=== PATIENT | female | born 1995 | race African-American/Black ===

== ENCOUNTER 2020-05-28 15:53 | Emergency (ER) | payer BC, SELFPAY ==
[2020-05-28 15:55] VITALS: BP 107/72; PULSE 98; RESP 16; TEMP 36.3; O2SAT 100
[2020-05-28 17:40] VITALS: PULSE 80; RESP 20; O2SAT 100
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
== END 2020-05-28 17:42 | disposition home or self-care (01) ==
PROVIDERS: Emergency Provider Emergency Medicine; PCP Internal Medicine
DX: S61.411A Laceration without foreign body of right hand, initial encounter (principal); W27.2XXA Contact with scissors, initial encounter
CPT/HCPCS: 99282

== ENCOUNTER 2020-05-30 16:01 | Emergency (ER) | payer BC, SELFPAY ==
--- NOTE | ~2020-05-30 | XR_ITS ---
XR hand RT min 3V 05/30/2020 16:49 INDICATION: Right hand pain PROCEDURE: 3 views right hand COMPARISON: No prior studies for comparison. FINDINGS: Fracture, dislocation or subluxation is not identified. The soft tissues appear within norm al limits. No foreign bodies are identified. IMPRESSION: 1: NO ACUTE BONE OR JOINT ABNORMALITY IDENTIFIED. Reviewed, dictated and finalized at location A. RER
[2020-05-30 16:09] VITALS: BP 100/66; PULSE 74; RESP 20; TEMP 36.7; O2SAT 100
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
== END 2020-05-30 18:19 | disposition home or self-care (01) ==
PROVIDERS: Emergency Provider Emergency Medicine; PCP Internal Medicine
DX: M79.641 Pain in right hand (principal)
CPT/HCPCS: 73130; 99283

== ENCOUNTER 2021-07-08 12:52 | Emergency (ER) | payer OTHER, BC, SELFPAY ==
[2021-07-08 13:13] VITALS: BP 109/71; PULSE 80; RESP 16; TEMP 36.3; O2SAT 100
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
== END 2021-07-08 14:12 | disposition home or self-care (01) ==
PROVIDERS: Emergency Provider Nurse Practitioner
DX: S39.012A Strain of muscle, fascia and tendon of lower back, initial encounter (principal); V49.40XA Driver injured in collision with unspecified motor vehicles in traffic accident, initial encounter; S63.501A Unspecified sprain of right wrist, initial encounter
CPT/HCPCS: 99213; G0463

== ENCOUNTER 2021-07-18 14:18 | Emergency (ER) | payer OTHER, BC, SELFPAY ==
[2021-07-18 14:23] VITALS: BP 124/78; PULSE 79; RESP 14; TEMP 37.1; O2SAT 100
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
[2021-07-18] MEDS: KETOROLAC (*BKC) 60 MG/2 ML VIAL IM (16:21)
== END 2021-07-18 17:17 | disposition home or self-care (01) ==
PROVIDERS: Emergency Provider Emergency Medicine
DX: S39.012D Strain of muscle, fascia and tendon of lower back, subsequent encounter (principal); V49.40XD Driver injured in collision with unspecified motor vehicles in traffic accident, subsequent encounter
CPT/HCPCS: 96372; 99283; J1885

== ENCOUNTER 2022-05-07 15:54 | Emergency (ER) | payer BC, SELFPAY ==
[2022-05-07 16:05] VITALS: BP 101/47; PULSE 75; RESP 18; TEMP 36.7; O2SAT 100
--- NOTE | 2022-05-07 16:06 | ED.FEMALEGU ---
HPI - Female Genitourinary General Chief complaint: Urogenital-Female Stated complaint: irritation in genitals Time Seen by Provider: 05/07/22 16:10 Source: patient and RN notes reviewed Mode of arrival: ambulatory Limitations: no limitations History of Present Illness HPI Narrative: 26-year-old female presented for complaint of vaginal irritation and feeling 'uncomfortable.' Onset about 4 days. Endorses more vaginal discharge than normal, but states it is normal in color and without odor. Denies abdominal pain, flank pain, vaginal itching, burning with urination, hematuria, frequency or urgency. States she was treated for trich about 3 months ago. Denies known exposure to std at this time, but would like evaluated. States it isn't that uncomfortable. Related Data Home Medications Medication Instructions Recorded Confirmed levonorgestrel 20 mcg/24 hours (8 See Rx Instructions .Route .COMPLEX 05/07/22 05/07/22 yrs) 52 mg intrauterine device (Mirena) Allergies Allergy/AdvReac Type Severity Reaction Status Date / Time No Known Allergies Allergy Verified 05/07/22 16:02 Review of Systems Review of Systems: CONSTITUTIONAL: Denies body aches, fever, chills, or sweats. CARDIOVASCULAR: Denies chest pain, palpitations, or edema. RESPIRATORY: Denies cough or dyspnea. GASTROINTESTINAL: Denies abdominal pain, nausea, vomiting, or diarrhea. GENITOURINARY: per HPI SKIN: Denies rash, itching, or wounds. MUSCULOSKELETAL: Denies back pain or myalgia. [facility] Past Medical History Medical History No pertinent past medical history Surgical History Surgical History No pertinent past surgical history Family History Family History Mother Hypertension Father Pancreatic cancer Social History Social History Smoking status: Never smoker Alcohol intake: never Gender identity (if verbalized by the patient): Female Comments At time of signature, I have reviewed and agree with nursing past medical, surgical, social and family history unless otherwise noted. Please see nursing chart for further information. There is no relevant family history pertinent to the presenting complaint Exam Narrative: GENERAL: Well-appearing and in no acute distress. EYES: EOMI. . ENT: Mucous membranes pink and moist. CHEST: Clear to auscultation. HEART: Regular rate and rhythm. ABDOMEN: Soft, nontender, nondistended, normal active bowel sounds. No CVA tenderness SKIN: Warm, dry, no rash. Course Course Emergency Course: Patient is aware of diagnosis, understands and agrees to treatment plan. Anticipatory guidance given. Patient agrees to follow-up as directed and is aware of reasons to seek care at the emergency department. Portions of this record may have been created with voice recognition software Level of Care: Express Care Visit Vital Signs Vital signs: Vital Signs Temperature 98.0 F 05/07/22 16:05 Pulse Rate 75 05/07/22 16:05 Respiratory Rate 18 05/07/22 16:05 Blood Pressure 101/47 L 05/07/22 16:05 Pulse Oximetry 100 05/07/22 16:05 Oxygen Delivery Room Air 05/07/22 16:05 Temperature 98.0 F 05/07/22 16:05 Pulse Rate 75 05/07/22 16:05 Respiratory Rate 18 05/07/22 16:05 Blood Pressure 101/47 L 05/07/22 16:05 Pulse Oximetry 100 05/07/22 16:05 Oxygen Delivery Room Air 05/07/22 16:05 Reviewed MDM - Female Genitourinary MDM Narrative Medical decision making narrative: Patient presenting with concern for UTI and STD. Urine specimen collected for UA C&S, GC, chlamydia, trich. Informed Pt will be contacted w/ results when they become available if they are positive. Discussed with patient that it takes up to 7 days for results of cultures to be released
== END 2022-05-07 16:56 | disposition home or self-care (01) ==
PROVIDERS: Emergency Provider Nurse Practitioner Family; PCP Internal Medicine
DX: N89.9 Noninflammatory disorder of vagina, unspecified (principal)
CPT/HCPCS: 81003; 81025; 87086; 87491; 87591; 87661; 99214; G0463